=== PATIENT | female | born 1980 | race Caucasian/White ===

== ENCOUNTER 2016-11-30 11:26 | Inpatient (IN) | payer BC ==
[2016-11-30] MEDS: LR 1,000 ML IV PRN ×4 (11:26→23:11)
[2016-11-30] MEDS ORDERED: PHENYLEPHRINE HCL 100 MCG/ML SYR ONE (11:40)
[2016-11-30] MEDS ORDERED: BUPIVACAINE 0.25% 30 ML SDV ONE (11:40)
[2016-11-30] MEDS ORDERED: fentaNYL 2MCG/ML/BUP 0.1% RTU 100 ML BAG EP ONE (11:40)
[2016-11-30] MEDS ORDERED: fentaNYL 100 MCG/2 ML INJ ONE (11:41)
[2016-11-30] MEDS ORDERED: EPSOM SALT 454 GM TP PRN (11:47)
[2016-11-30] MEDS ORDERED: LIDOCAINE 1% 30 ML SDV SC PRN (11:47)
[2016-11-30] MEDS ORDERED: OXYTOCIN/RINGERS LACTATE 1,000 ML IV PRN (11:47)
[2016-11-30] MEDS ORDERED: TERBUTALINE SULFATE 1 MG/ML VIAL IV PRN (11:47)
[2016-11-30] MEDS ORDERED: OLIVE OIL 118 ML BTL MISC PRN (11:47)
[2016-11-30] MEDS ORDERED: LIDOCAINE 1% 2 ML INJ ONE (11:53)
[2016-11-30 12:09] LABS: % IMMATURE GRANULYOCYTES 0.7 % (0.0-1.1); ABSOLUTE IMMATURE GRANULOCYTES 0.09 10^3/uL (0.00-0.10); ADD DIFF? NO; ADD MORPH? NO; ADD SCAN? NO; ATYPICAL LYMPHOCYTE FLAG 0 (0-99); FRAGMENT RBC FLAG 0 (0-99); HEMATOCRIT 41.5 % (38.0-47.0); HEMOGLOBIN 14.6 g/dL (12.6-16.3); LEFT SHIFT FLG 0 (0-99); LIPEMIA HEMOLYSIS FLAG 90 (0-99); MEAN CELL HEMOGLOBIN 31.1 pg (27.9-34.1); MEAN CELL HEMOGLOBIN CONCENTR. 35.2 g/dL (32.4-36.7); MEAN CELL VOLUME 88.3 fL (81.5-99.8); MEAN PLATELET VOLUME 13.5 fL (8.7-11.7); PLATELET CLUMPS FLAG 10 (0-99); PLATELET COUNT 186 10^3/uL (150-400); RED CELL DISTRIBUTION WIDTH 13.6 % (11.5-15.2)
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
--- NOTE | 2016-11-30 17:15 | OBPROG ---
OBG Progress Note Assessment/Plan: Assessment: 36y/o IUP @39w1d Active labor SROM @0920, mec Plan: Epidural in place Con't maternal/ monitoring Expectant mgmt Anticipate Disc with Dr. Funes, attending 11/30/16 17:11 Subjective: Pt resting comfortably in bed. Using intermittent nipple stim to keep CTX going. FOB at bedside. Objective: 11/30/16 11:40 Patient ABO/Rh B POSITIVE 11/30/16 11:40 - SVE Dilation (cm): 7 Effacement (%): 90 Station: -2 Current Contraction Pattern: Regular (q 2-4 min) FHR Pattern Variability: Moderate FHR Category: 1 (-accels, -decels) Membranes: SROM (@0920 at pt home, mec per RN when arrived to hospital) Amniotic Fluid Color: Meconium Stained-Light - Physical Exam General Appearance: alert, no apparent distress Neuro/Psych: alert, normal mood/affect, oriented x 3 ICD10 Worksheet Patient Problems: Problems Problem Status Onset Active labor at term Acute - ICD10 Problem Qualifiers (1) Active labor at term
--- NOTE | 2016-11-30 19:40 | OBPROG ---
OBG Progress Note Assessment/Plan: Assessment: Plan: Subjective: patient is feeling more pressure. IUPC came out. will not replace it because she is changing her cervix. will recheck cervix when patient feels more pressure or in an hour. Objective: 11/30/16 11:40 Patient ABO/Rh B POSITIVE 11/30/16 11:40 - SVE Dilation (cm): 7, 8 Effacement (%): 90 Station: +1 Current Contraction Pattern: Regular FHR Pattern Variability: Moderate FHR Category: 1 ICD10 Worksheet Patient Problems: Problems Problem Status Onset Active labor at term Acute
[2016-11-30] MEDS ORDERED: ONDANSETRON 4 MG/2 ML VIAL IVP PRN (20:23)
[2016-11-30] MEDS ORDERED: PHENYLEPHRINE HCL 100 MCG/ML SYR IVP PRN (20:23)
[2016-11-30] MEDS ORDERED: fentaNYL 2MCG/ML/BUP 0.1% RTU 100 ML EP SCH (20:30)
[2016-11-30] MEDS ORDERED: LR 500 ML IV SCH (20:30)
--- NOTE | 2016-11-30 20:34 | PREANESOB ---
Obstetric Pre-Anesthesia Info - General Info Proposed Procedure: Labor and delivery. : 1 Para: 0 WBD: 38 - Info Status: Full Term Monitors: External FHR Baseline (bpm): 130 FHR Pattern: Reassuring - Labor Status Cervical Dilation per last OB SVE: 4, 8 Station per last OB SVE: +1 Amniotic Fluid Color: Meconium Stained-Light Indications for Labor Analgesia: Pain Control Labor Epidural: Proposed Anesthesia ROS: Negative. Allergies/Adverse Reactions: Allergy/AdvReac Type Severity Reaction Status Date / Time gluten Allergy Verified 11/30/16 17:20 Home Medications: Medication Instructions Recorded Calcium Carb W/Vit D 2 PO HS 11/30/16 Fish Oil + D3 Softgel 2 cap PO HS 11/30/16 2 cap PO DAILY 11/30/16 Probiotic HS MDD 150 billion organisms 11/30/16 multistr Valtrex 400 mg PO DAILY 11/30/16 Visit Medications: Generic Name Dose Route Start Last Admin Trade Name Freq PRN Reason Stop Dose Admin Diphenhydramine HCl 25 - 50 mg 11/30/16 20:23 Benadryl Injection IVP 05/29/17 20:22 Q6HRS PRN Itching Lactated Ringer's 1,000 mls @ 0 mls/hr 11/30/16 11:47 11/30/16 16:11 Lr IV 05/29/17 11:46 1,000 mls PRN PRN Administration SEE PROTOCOL CONDITIONS Protocol Per Protocol Oxytocin/Lactated Ringer's 1,000 mls @ 150 mls/hr 11/30/16 11:47 Pitocin 20 Units/Lr (Premix) IV PRN PRN Post- bleeding Fentanyl/Bupivacaine HCl 100 mls @ 0 mls/hr 11/30/16 20:30 Fentanyl/Bupivacaine/Ns 2 Mcg/Ml 0.1% (Premix EP 12/10/16 20:29 CONT JOSEPH Protocol As Directed Lactated Ringer's 500 mls @ 0 mls/hr 11/30/16 20:30 Lr IV 05/29/17 20:29 CONT JOSEPH As Directed Ibuprofen 600 mg 11/30/16 11:47 Motrin PO 05/29/17 11:46 Q6HRS PRN post , inflammation Lidocaine HCl 30 ml 11/30/16 11:47 Lidocaine Hcl 1% SC 05/29/17 11:46 ONCE PRN Episiotomy Magnesium Sulfate 454 gm 11/30/16 11:47 Epsom Salt TP 05/29/17 11:46 PRN PRN perineal discomfort Allyn Oil 118 ml 11/30/16 11:47 Sweet Oil MISC 05/29/17 11:46 ONCE PRN preneal massage Ondansetron HCl 4 mg 11/30/16 20:23 Zofran IVP 05/29/17 20:22 Q4HRS PRN Nausea/Vomiting, Can't Take PO Phenylephrine HCl 100 mcg 11/30/16 20:23 Aureliano-Synephrine IVP 05/29/17 20:22 .Q2M PRN Hypotension Terbutaline Sulfate 0.25 mg 11/30/16 11:47 Brethine IV 05/29/17 11:46 ONCE PRN Tachysystole Discontinued Medications Generic Name Dose Route Start Last Admin Trade Name Freq PRN Reason Stop Dose Admin Bupivacaine HCl Confirm 11/30/16 11:40 Sensorcaine 0.25% Sdv Administered 11/30/16 11:41 Dose 30 ml .ROUTE .STK-MED ONE Fentanyl Confirm 11/30/16 11:41 Sublimaze Administered 11/30/16 11:42 Dose 100 mcg .ROUTE .STK-MED ONE Fentanyl/Bupivacaine HCl Confirm 11/30/16 11:40 Fentanyl/Bupivacaine/Ns 2 Mcg/Ml 0.1% (Premix Administered 11/30/16 11:41 Dose 100 ml EP .STK-MED ONE Lidocaine HCl Confirm 11/30/16 11:53 Lidocaine Hcl 1% Administered 11/30/16 11:54 Dose 2 ml .ROUTE .STK-MED ONE Phenylephrine HCl Confirm 11/30/16 11:40 Aureliano-Synephrine Administered 11/30/16 11:41 Dose 1,000 mcg .ROUTE .STK-MED ONE - Anesthesia History Response to Local Anesthetics: Normal - Social History Substance Use/Abuse: Denies - Focused Exam Blood Pressure: 100/56 Heart Rate: 72 Respiratory Rate: 20 Height/Weight (Nursing): Height 162.56 cm Weight 78.018 kg Physical Exam: Within normal limits. ASA Status: II Labs: 11/30/16 11:40 Patient ABO/Rh B POSITIVE 11/30/16 11:40 - Plan Anesthetic Plan: CSE Consent Signed and on Chart: Yes Patient/Guardian Understands and Agrees to Plan: Yes
--- NOTE | 2016-11-30 20:34 | POSTANESTH ---
Post Anesthetic Evaluation Cardiovascular Status: Normal, Stable, Similar to Pre-Op Cond Respiratory Status: Normal, Stable, Similar to Pre-op Cond. Level of Consciousness/Mental Status: Can Participate in Eval, Alert and Oriented Pain Control: Adequate, Prn Tx Ordered Nausea/Vomiting Control: Adequate, Prn Tx Ordered Complications Possibly Related to Anesthesia: None Noted (Tolerated CSE well, stable, comfortable.)
--- NOTE | 2016-11-30 22:11 | OBPROG ---
OBG Progress Note Assessment/Plan: Assessment: 36y/o IUP @39w1d Active labor SROM @0920, mec Plan: Labor down until feels urge to push Epidural in place Con't maternal/ monitoring Anticipate Disc with Dr. Funes, attending 11/30/16 17:11 11/30/16 22:10 Subjective: Pt comfortable, sitting up in bed. c/o feeling more pressure. Objective: Pt has cervical lip per SVE by Dr. Funes. Practice pushes done but pt not feeling strong urge to push. Dr. Funes disc refraining from pushing epidural bolus so has more feeling to push effectively, con't position changes. Pt agreeable with plan. 11/30/16 11:40 Patient ABO/Rh B POSITIVE 11/30/16 11:40 Temp Pulse Resp BP Pulse Ox 72 20 100/56 L 11/30/16 20:34 11/30/16 20:34 11/30/16 20:34 - SVE Dilation (cm): 9 Effacement (%): 100 Station: 0 Current Contraction Pattern: Irregular FHR (bpm): 140 FHR Pattern Variability: Moderate FHR Category: 2 Membranes: SROM Amniotic Fluid Color: Meconium Stained-Light ICD10 Worksheet Patient Problems: Problems Problem Status Onset Active labor at term Acute - ICD10 Problem Qualifiers (1) Active labor at term
[2016-11-30] MEDS ORDERED: OXYTOCIN/RINGERS LACTATE 500 ML IV SCH (23:00)
[2016-12-01] MEDS ORDERED: ACETAMINOPHEN 325 MG TAB PO PRN (03:08)
[2016-12-01] MEDS ORDERED: SIMETHICONE 80 MG TAB CHEW PO PRN (03:08)
[2016-12-01] MEDS ORDERED: HYDROCORTISONE 0.5% CREAM TP PRN (03:08)
[2016-12-01] MEDS ORDERED: HYDROCODONE/APAP 5/325 TAB PO PRN (03:08)
--- NOTE | 2016-12-01 03:13 | OBPROC ---
- Labor and Delivery Onset of Contractions Date: 11/30/16 Onset of Contractions Time: 02:00 Onset of Contractions Type: Spontaneous Rupture of Membranes Date: 11/30/16 Rupture of Membranes Time: 10:15 Rupture of Membranes Type: Spontaneous Amniotic Fluid Color: Meconium Stained-Light Dilation Complete Time: 00:15 (12/01/16) Delivery Type: Spontaneous Placenta Delivery Date: 12/01/16 Placenta Delivery Time: 02:19 Episiotomy/Laceration: 2nd Degree Repair: 3-0, Vicryl (x2. Lac repaired by Dr. Funes.) EBL: 300 Complications: None - Medications Labor Augmentation/Induction Meds Used: Pitocin Labor Augmentation/Induction Indication: Other (Specify) (CTXs ineffective for cervical change) Anesthesia: Epidural, Local (Specify) (Lidocaine 1% for lac repair) - [place] Info Infant A Delivery Date: 12/01/16 Delivery Time: 02:13 Sex of : Male Score (1 Min): 8 Score (5 Min): 9
[2016-12-01] MEDS: IBUPROFEN 600 MG TAB PO PRN ×2 (07:13→15:55)
--- NOTE | 2016-12-01 10:18 | SOAPPROG ---
SOAP Progress Note Assessment/Plan: Assessment:2 man assist with ambulation continuednumness in left leg after the epidural nipples bruised and blistered ff@u scant rubra lochia perineum approximated Plan: consult assist while in room, consult anesthesia, consult pt for mobility assessment, pp day 1 expectant mangement 12/01/16 10:15 Subjective: " I have numbness in left leg since delivery." Complaint of nipple pain with . Objective: Vital Signs Temp Pulse Resp BP Pulse Ox 36.9 C 77 16 97/56 L 12/01/16 05:54 12/01/16 05:54 12/01/16 05:54 12/01/16 05:54 Laboratory Results 11/30/16 11:40 11/30/16 12/01/16 12/02/16 05:59 05:59 05:59 Output Total 300 Balance -300 Physical Exam - Physical Exam General Appearance: WD/WN, alert, no apparent distress Cardiac/Chest: regular rate, rhythm Pelvic Exam: vaginal bleeding (FF@u) Skin: normal color, warm/dry Extremities: Bartolo's sign (negative bilaterally), other (left leg numbness with mobility dfficulty after delivery) Neuro/Psych: no motor/sensory deficits, alert, normal mood/affect, oriented x 3 ICD10 Worksheet Patient Problems: Problems Problem Status Onset (normal spontaneous vaginal delivery) Acute
[2016-12-01] MEDS: DOCUSATE SODIUM 100 MG CAP PO PRN (21:13)
[2016-12-01 22:25] VITALS: RESP 16
[2016-12-02] MEDS: IBUPROFEN 600 MG TAB PO PRN ×4 (02:42→22:22)
[2016-12-02] MEDS: DOCUSATE SODIUM 100 MG CAP PO PRN ×2 (10:02→22:22)
--- NOTE | 2016-12-02 18:59 | SOAPPROG ---
SOAP Progress Note Assessment/Plan: Assessment: ppd# 1 s/p urinary incontinence leg numbness resolved breast feeding Plan: routine post care offered hua catheter - patient declines 12/02/16 18:55 Subjective: patient is doing well. pain is well controlled. ambulating in room. normal lochia. having urinary incontinence. declines hua catheter. breast feeding is going well. Objective: Vital Signs Temp Pulse Resp BP Pulse Ox 36.9 C 79 16 90/59 L 97 12/02/16 08:31 12/02/16 08:31 12/02/16 08:31 12/02/16 08:31 12/02/16 08:31 Laboratory Results 11/30/16 11:40 12/01/16 12/02/16 12/03/16 05:59 05:59 05:59 Output Total 300 Balance -300 Physical Exam - Physical Exam General Appearance: WD/WN, alert, no apparent distress Respiratory: chest non-tender, lungs clear, normal breath sounds Cardiac/Chest: normal peripheral pulses, regular rate, rhythm Abdomen: normal bowel sounds, non-tender, soft, other (fundus firm and non tender) Skin: normal color, warm/dry Extremities: normal range of motion, non-tender, normal inspection, normal capillary refill Neuro/Psych: no motor/sensory deficits, alert, normal mood/affect, oriented x 3 ICD10 Worksheet Patient Problems: Problems Problem Status Onset (normal spontaneous vaginal delivery) Acute
[2016-12-03] MEDS: IBUPROFEN 600 MG TAB PO PRN ×2 (04:51→11:05)
[2016-12-03] MEDS: DOCUSATE SODIUM 100 MG CAP PO PRN (08:30)
[2016-12-03 08:34] VITALS: BP 120/74; PULSE 81; TEMP 97.4; O2SAT 94
--- NOTE | 2016-12-03 08:43 | SOAPPROG ---
SOAP Progress Note Assessment/Plan: Assessment:/ nipples broken down , red, mobility greatly increased patient doing well no further difficultys with mobility numbness to left upper thigh resolved ff@u scant rubra locia pain well managed perineum approximated swelling in lower extremities +1 bilaterally Plan: apno cream to patient discussed latch again Discharge to home with instructions. Fu with encouraged, depression, pain management, ss infection, contraception, pelvic rest x 6 weeks, rest, pericare, fu with pelvic specialist to assist with incontinence, brianda discussedcontinuing vitamin 12/01/16 10:15 12/03/16 08:37 Subjective: Doing well. Ready to go home today. Having some diffcultys. Complaint of some incontinence with voiding. Discussed kegals. Discussed fu with pelvic specialists after healing of repair verbalized understanding Objective: Vital Signs Temp Pulse Resp BP Pulse Ox 36.3 C 81 16 120/74 94 12/03/16 07:55 12/03/16 07:55 12/03/16 07:55 12/03/16 07:55 12/03/16 07:55 Laboratory Results 11/30/16 11:40 Physical Exam - Physical Exam General Appearance: WD/WN, alert Abdomen: other (FF@u) Pelvic Exam: vaginal bleeding (scant rubra lochia) Skin: normal color, warm/dry Extremities: normal range of motion, Bartolo's sign (negative bilaterally/ dtrs1+ bilaterally) Neuro/Psych: no motor/sensory deficits, alert, normal mood/affect, oriented x 3 , other (incontinance of urine) ICD10 Worksheet Patient Problems: Problems Problem Status Onset (normal spontaneous vaginal delivery) Acute
== END 2016-12-03 12:20 | disposition home or self-care (01) | DRG 775 ==
LOC: FLD 11:26 → FOB 12-01 05:20
PROVIDERS: ADMIT Advanced Practice Midwife; ATTEND Obstetrics & Gynecology
PROC: 4A1J7BZ Monitoring of Products of Conception, Nervous Pressure, Via Natural or Artificial Opening (ICD-10-PCS; 2016-11-30)
PROC: 10E0XZZ Delivery of Products of Conception, External Approach (ICD-10-PCS; principal; 2016-12-01)
PROC: 0KQM0ZZ Repair Perineum Muscle, Open Approach (ICD-10-PCS; principal; 2016-12-01)
DX: O70.1 Second degree perineal laceration during delivery (principal); O99.013 Anemia complicating pregnancy, third trimester; D64.9 Anemia, unspecified; O09.513 Supervision of elderly primigravida, third trimester; Z37.0 Single live birth; Z3A.39 39 weeks gestation of pregnancy; Z91.410 Personal history of adult physical and sexual abuse
CPT/HCPCS: J2370; J2590; J3010